=== PATIENT | female | born 1965 | race Caucasian/White ===

== ENCOUNTER → 2019-03-05 | Day surgery (SDC) | payer BC ==
[~2019-03-05] MED LIST: AMLODIPINE-BEN1 EACH PO; ASPIR 8181 MG PO; CRESTOR10 MG PO; FENTANYL CITRATE/PF 100MCG/2 ML INJ ONE; FISH OIL 1,0001 EAC2 PO; HYOSCYAMINE SULFATE 0.5 MG/ML INJ ONE; INVOKANA PO; LEVOTHYROXINE100 MC1 IV; LEXAPRO10 MG PO; MIDAZOLAM HCL 2 MG/2 ML VIAL ONE; MULTIVITAMINS1 EAC7 PO; PROPOFOL IV EMULSION 10 MG/ML 50 ML VIAL ONE; SIMETHICONE 40 MG/0.6 ML BTL ONE; SYNTHROID125 MCG PO; TOPIRAMATE25 MG PO; VITAMIN D1000 UNI1 PO; VITAMIN E200 UNI2 PEG
--- OUTSIDE RECORDS SUMMARY | 2019-03-05 06:19 | XMS REPORT | Encounter Summary ---
Author Organization Unknown Address [address] [place] [address] Phone [phone] Care Team Providers Care Air Conditioning Specialist Name Role Phone Teddy Neal MD 3 [phone] Reason for Visit Medical Complaint Instructions 1. Onychomycosis toenail fungus: care instructions CMP, serum or plasma 2. Essential hypertension high blood pressure: care instructions learning about high blood pressure 3. Hyperlipidemia high cholesterol: care instructions 4. Alcohol intake above recommended sensible limits 5. Nicotine dependence stopping smoking: care instructions 6. Body mass index 30+ - obesity body mass index: care instructions Discussion Note Wash your feet often, and wash your hands after touching your feet. Keep your toenails clean and dry. Dry your feet completely after you bathe and before you put on shoes and socks. Keep your toenails trimmed. Change socks often. Wear dry socks that absorb moisture. Do not go barefoot in public places. Use a spray or powder that fights fungus on your feet and in your shoes. Do not pick at the skin around your nails. Do not use nail sinhala or fake nails on your toenails. advised patient to see PCP for elevated Blood Pressure. Any chest pain, shortness of breath,palpitations, or if blood pressure increased go to the emergency room immediately. Take medications regularly for good control of BP and cholesterol Plan of Care Patient Instructions monitor BP and take medications regularly. If any CP or SOB, palpitations go to ER. DIscussed with patient nicotine addiction and excessive alcohol intake. Reminders Provider Appointments None recorded. Lab CMP, Serum or Plasma 06/05/2018 [facility] Referral None recorded. Procedures None recorded. Surgeries None recorded. Imaging None recorded. Medications Name Start Date amlodipine 5 mg-benazepril 20 mg capsule TK 1 C PO QD escitalopram 20 mg tablet TK 1 T PO QD gabapentin 100 mg capsule TK 2 CS PO BID Invokana 300 mg tablet TK 1 T PO QD levothyroxine 150 mcg tablet TK 1 T PO ONCE A DAY phentermine 30 mg capsule TK 1 C PO QD rosuvastatin 10 mg tablet TK 1 T PO QD. GEF CRESTOR topiramate 25 mg sprinkle capsule TK ONE C PO D Medications Administered None recorded. Vitals Height Weight BMI Blood Pressure 5 ft 3 in 196 lbs 34.7 kg/m2 (1) 130/100 mm[Hg] (2) 140/96 mm[Hg] Lab Results None recorded. Allergies Code Code System Name Reaction Severity Status Onset NKDA Problems Name Status Onset Date Source Body Mass Index 30+ - Obesity Active 06/05/2018 Procedures None recorded. Vaccine List Vaccine Type influenza, injectable, quadrivalent 09/09/2017 Tdap 05/12/2013 Social History Smoking Status Former Smoker Past Encounters 06/05/2018 Onychomycosis; Essential Hypertension; Hyperlipidemia; Alcohol Intake above Recommended Sensible Limits; Nicotine Dependence; Body Mass Index 30+ - Obesity Monica Domingo PA-C: [address] [place] [address], Ph. History of Present Illness Vucw-Wbnhuby-Nepdx-Skin Lesion-Bite 1 Reported By: Patient HPI: Location: ; nails bilateral hands (5 digits). Quality: not itchy, not painful; get manicures and pedicures. Severity: worsening. Duration: ; unsure. Onset/Timing: gradual onset. Context: no new detergents or skin products, no one else with similar rash, no sting or bite. Aggravating factors: nothing makes it worse. Associated Symptoms: no fever/chills, no muscle aches, no headache, no cold symptoms, no nausea, no vomiting, no diarrhea, no urinary symptoms Review of Systems Basic Reported By: Patient Constitutional: Constitutional: no fever Eyes: Eyes: no eye complaints Zvhh-Gblo-Fykrv-Throat: Ears: no ear complaints. Nose: no nose/sinus problems. Mouth/Throat: no sore throat, no bleeding gums, no mouth complaints, no teeth problems Cardiovascular: Cardiovascular: no chest pain, no shortness of breath, no known heart murmur Respiratory: Respiratory: no cough, no wheezing, no shortness of breath Gastrointestinal: Gastrointestinal: no abdominal pain, no vomiting / diarrhea Genitourinary: Genitourinary: no urinary complaints, no discharge Musculoskeletal: Musculoskeletal: no muscle aches, no muscle weakness, no arthralgias/joint pain, no back pain Skin: Skin: no abnormal / changing mole, no jaundice, no rashes; nails yellow dark and slightly kerantized Neurologic: Neurologic: no loss of consciousness, no weakness, no numbness, no seizures, no dizziness, no headaches Physical Exam Adult Basic Reported By: Patient Constitutional: General Appearance: healthy-appearing, well-nourished, well-developed, overweight. Level of Distress: NAD. Ambulation: ambulating normally Psychiatric: Mental Status: active and alert. Orientation: to time, to place, to person Lungs: Respiratory effort: no dyspnea, no tachypnea, no use of accessory muscles, no intercostal retractions. Auscultation: breath sounds normal Cardiovascular: Heart Auscultation: RRR, no murmurs Skin: Inspection and palpation: no rash, no lesions, no ulcer, no abnormal nevi, no induration, no nodules, good turgor, no jaundice. Nails: abnormal; yellow darkish colored nails , right hand 2nd and 4th digits; Left hand 2-4 digits keratinzed
--- OUTSIDE RECORDS SUMMARY | 2019-03-05 06:19 | XMS REPORT | Continuity of Care Document ---
Author Author [facility] Address Unknown Phone Unavailable Problems Problem Status Onset Date Classification Date Reported Comments Source Nicotine dependence 06/05/2018 Diagnosis 06/05/2018 [facility] Alcohol intake above recommended sensible limits 06/05/2018 Diagnosis 06/05/2018 [facility] Hyperlipidemia 06/05/2018 Diagnosis 06/05/2018 [facility] Essential hypertension 06/05/2018 Diagnosis 06/05/2018 [facility] Onychomycosis 06/05/2018 Diagnosis 06/05/2018 [facility] Body mass index 30+ - obesity 06/05/2018 Diagnosis 06/05/2018 [facility] Body Mass Index 30+ - Obesity 06/05/2018 Problem 06/05/2018 [facility] Medications Medication Details Route Status Patient Instructions Ordering Provider Order Date Source Amlodipine 5 MG / Benazepril hydrochloride 20 MG Oral Capsule amlodipine 5 mg-benazepril 20 mg capsule TK 1 C PO QD Active [facility] Escitalopram 20 MG Oral Tablet escitalopram 20 mg tablet TK 1 T PO QD Active [facility] gabapentin 100 MG Oral Capsule gabapentin 100 mg capsule TK 2 CS PO BID Active [facility] canagliflozin 300 MG Oral Tablet [Invokana] Invokana 300 mg tablet TK 1 T PO QD Active [facility] Levothyroxine Sodium 0.15 MG Oral Tablet levothyroxine 150 mcg tablet TK 1 T PO ONCE A DAY Active [facility] Phentermine Hydrochloride 30 MG Oral Capsule phentermine 30 mg capsule TK 1 C PO QD Active [facility] Rosuvastatin calcium 10 MG Oral Tablet rosuvastatin 10 mg tablet TK 1 T PO QD. GEF CRESTOR Active [facility] topiramate 25 MG Oral Capsule topiramate 25 mg sprinkle capsule TK ONE C PO D Active [facility] Allergies, Adverse Reactions, Alerts Substance Category Reaction Severity Reaction type Status Date Reported Comments Source Immunizations Immunization Date Given Site Status Last Updated Comments Source influenza, injectable, quadrivalent 09/09/2017 completed [facility] Tdap 05/12/2013 completed [facility] Results Order Name Results Value Reference Range Date Interpretation Comments Source Vital Signs Vital Sign Value Date Comments Source Diastolic (mm Hg) 96 06/05/2018 [facility] Height 63 06/05/2018 [facility] Systolic (mm Hg) 140 06/05/2018 [facility] Weight 196 06/05/2018 [facility] Encounters Location Location Details Encounter Type Encounter Number Reason For Visit Attending Provider ADM Date DC Date Status Source [place] - [facility] - [id number] ДМИТРИЙ AlvarezC: [address] [place] [address], Ph. [id number] Monica Domingo 06/05/2018 [facility] [place] - [facility] - [id number] ДМИТРИЙ AlvarezC: [address] [place] [address], Ph. [id number] Monica Domingo 06/05/2018 [facility] Procedures Procedure Code Date Perfomer Comments Source
--- OUTSIDE RECORDS SUMMARY | 2019-03-05 06:19 | XMS REPORT | Clinical Summary ---
Author Author [facility] Organization [facility] Address Unknown Phone Unavailable Care Team Providers Care Doctor Assistant Name Role Phone Teddy Neal DO PCP Allergies Not on File Medications Not on file Active Problems Not on file Social History Date Tobacco Use Types Packs/Day Years Used Never Assessed Sex Assigned at Date Recorded Not on file Industry Job Start Date Occupation Not on file Not on file Not on file Travel End Travel History Travel Start No recent travel history available. Last Filed Vital Signs Not on file Plan of Treatment Health Maintenance Due Date Last Done Comments CERVICAL CANCER SCREENING 1987 BREAST CANCER SCREENING 2016 COLON CANCER SCREENING 2016 SHINGLES VACCINES (#1) 2016 INFLUENZA VACCINE 06/11/2019 Results Not on fileafter 03/04/2018 Insurance Payer Benefit Subscriber ID Type Phone Address Plan / Group BCBS BCBS xxxxxxxxxxxx PPO CHOICE PPO/DIANE JIANG PPO (Home) [place] [address] Advance Directives Patient has advance care planning documents on file. For more information, christine doll contact: Devon Castro [address] [place], [place] [address] [place] [address]
--- OUTSIDE RECORDS SUMMARY | 2019-03-05 06:20 | XMS REPORT | Encounter Summary ---
Author Organization Unknown Address [address] [place] [address] Phone [phone] Care Team Providers Care Insole Department Worker Name Role Phone Teddy Neal MD 3 [phone] Reason for Visit Medical Complaint Instructions 1. Onychomycosis toenail fungus: care instructions CMP, serum or plasma 2. Essential hypertension high blood pressure: care instructions learning about high blood pressure 3. Body mass index 30+ - obesity body mass index: care instructions 4. Hyperlipidemia high cholesterol: care instructions Discussion Note Wash your feet [...] around your nails. Do not use nail citizen of [place] or fake nails on your toenails. advised patient to see PCP for elevated Blood Pressure. Any chest pain, shortness of breath,palpitations, or if blood pressure increased go to the emergency room immediately. Take medications regularly for good control of BP and cholesterol Plan of Care Patient Instructions Wash your feet often, and wash your [...] around your nails. Do not use nail citizen [place] or fake nails on your toenails. Reminders Provider Appointments None recorded. Lab CMP, [...] Smoker Past Encounters 06/05/2018 Onychomycosis; Essential Hypertension; Body Mass Index 30+ - Obesity; Hyperlipidemia Monica Domingo PA-C: [address] [place] [address], Ph. History of Present Illness Uxac-Ribqpdm-Zxlvk-Skin Lesion-Bite 1 Reported By: Patient HPI: Location: [...] no fever Eyes: Eyes: no eye complaints Zinm-Lliy-Ohnku-Throat: Ears: no ear complaints. Nose: no nose/sinus [...]
--- OUTSIDE RECORDS SUMMARY | 2019-03-05 06:20 | XMS REPORT ---
Author Author [facility] Address Unknown Phone Unavailable Care Team Providers Care Dry Cleaning Teacher Name Role Phone AYANA KEMP Unavailable Unavailable Problems This patient has no known problems. Allergies, Adverse Reactions, Alerts This patient has no known allergies or adverse reactions. Medications This patient has no known medications. Results Test Description Test Time Test Comments Text Results Atomic Results Result Comments CT ABDOMEN/PELVIS W [place] [address] Patient Name: FLACO VELA MR #: [id number] : 1965 Age/Sex: 51/F Req #: [id number] Adm Physician: Ordered by: AYANA KEMP MD Report #: [id number] Location: CT Room/Bed: Procedure: [id number] CT/CT ABDOMEN/PELVIS W Exam Date: 09/26/17 Exam Time: 1400 REPORT STATUS: Signed PROCEDURE: CT ABDOMEN AND PELVIS WITH CONTRAST TECHNIQUE: The abdomen and pelvis were scanned utilizing a multidetector helical scanner from the diaphragm to the lesser trochanter after the IV administration of 100 cc of Isovue 370 and the oral administration of water. Coronal and sagittal multiplanar reformations were obtained. COMPARISON: None. INDICATIONS: VENTRAL HERNIA FINDINGS: LOWER THORAX: Lung bases are clear. HEPATOBILIARY: No focal hepatic lesions. No biliary ductal dilatation. 1.0 cm peripherally calcified stone in the gallbladder neck. SPLEEN: No splenomegaly. PANCREAS: No focal masses or ductal dilatation. ADRENALS: No adrenal nodules. KIDNEYS/URETERS: No hydronephrosis, stones, or solid mass lesions. PELVIC ORGANS/BLADDER: Bladder is unremarkable. No wall th ickening or focal lesions. 2.2 x 2.4 x 1.9 cm hypodense, simple fluid density lesion in the lower uterine segment/cervix, which likely represents a large nabothian cyst. 4.3 x 2.8 cm simple fluid density lesion in the right ovary. Multiple pelvic phleboliths. PERITONEUM / RETROPERITONEUM: No free air or fluid. LYMPH NODES: No lymphadenopathy. VESSELS: Unremarkable. GI TRACT: No bowel dilation or evidence of obstruction. No pericolonic inflammatory changes. Stomach is unremarkable. BONES AND SOFT TISSUES: No acute bony abnormalities. Mild degenerative disc changes in the lumbosacral spine. Small fat-containing umbilical hernia (sagittal image 67 and series 2, image 61). No other hernias are identified. IMPRESSION: 1. small, fat-containing umbilical hernia. No other hernias are identified. 2. 2.2 cm fluid density lesion in the lower uterine segment/cervix likely represents a large nabothian cyst. A 4.3 cm simple fluid density lesion in the right ovary is likely a follicular cyst. These can be further assessed with transvaginal ultrasound if clinically indicated. 3. Cholelithiasis, without CT evidence of cholecystitis. Dameon James M.D. Dictated by: Dameon James M.D. on 09/26/2017 at 15:07 Electronically approved by: Dameon James M.D. on 09/26/2017 at 15:07 Dictated By: DAMEON JAMES MD [id number] Transcribed By: EZ on 09/26/17 [id number] COPY TO: AYANA KEMP MD
--- NOTE | 2019-03-05 07:20 | NUR ---
SPIRITUAL CARE - Pre-Surgery Assessment: Pt in bed. Pt's at bedside. Pt reported supportive attention from family and friends. Intervention: I provided pastoral presence, hospitality, sympathetic listening, and prayer. I acquainted pt with availability of continuous washer operator while hospitalized. Outcome: Pt expressed appreciation for visit. No need for follow up indicated at this time. JOHN PAUL Braunlain Spiritual Care Department O: [phone] Pager: [phone] ([phone] number calling from)
[2019-03-05 09:25] VITALS: BP 118/80
[2019-03-05 09:56] LABS: WBC,FECAL (FECAL LACTOFERRIN) NEGATIVE (NEGATIVE)
--- NOTE | 2019-03-05 15:07 | Operative Report ---
DATE OF PROCEDURE: 03/05/2019 SURGEON: Mihir Mas MD PROCEDURE: Esophagogastroduodenoscopy with biopsies and colonoscopy with polypectomy and biopsies. INDICATIONS FOR EGD: History of heartburn and indigestion. INDICATIONS FOR COLONOSCOPY: Colorectal cancer screening, history of loose stools. MEDICATIONS: The patient was done under MAC, please see anesthesiologist's note. PROCEDURE IN DETAIL: With the patient in left lateral decubitus position, a flexible fiberoptic Olympus gastroscope was introduced into the esophagus under direct visualization without any difficulty. There was some patchy erythema noted in distal esophagus. A minute tongue of velvety red mucosa was noted to extend proximally from the GE junction that was biopsied to rule out Cortez's. The scope was then advanced with ease into the stomach traversing a small sliding hiatal hernia. Mucosa overlying the antrum and the body revealed some patchy intense erythema, low-grade to moderate edema and biopsies were obtained and sent to stain for H pylori. The pylorus was of normal contour and shape, it was intubated with ease and the scope was advanced all the way to the second portion of the duodenum. Biopsies were obtained from the proximal and second portion and the duodenal bulb to rule out sprue. The scope was then withdrawn back into the stomach and retroflexed and the mucosa overlying the fundus and the cardia appeared to be within normal limits. The scope was then straightened out, it was subsequently withdrawn. The patient tolerated procedure well. IMPRESSION: 1. Distal esophagitis, mild. 2. Rule out Cortez's esophagus. 3. Small sliding hiatal hernia. 4. Gastritis, biopsied, biopsies sent to stain for H pylori. 5. Rule out sprue. PLAN: Follow up histology. Initiate Protonix 40 mg one p.o. q.a.m. a.c. PROCEDURE IN DETAIL: The patient was then turned around. After adequate lubrication of the anal canal, a flexible fiberoptic Olympus colonoscope was inserted into the rectum with ease and advanced all the way to the cecum. Mucosa overlying the cecum appeared to be within normal limits. The ileocecal valve was intubated and the scope was advanced into the terminal ileum. Biopsies were obtained. The scope was then withdrawn back into the colon. It was then withdrawn slowly. One polyp was snared and polypectomy site was hemoclipped in the distal ascending colon. The transverse grossly appeared to be within normal limits. There was mild patchy inflammatory changes noted in the left colon and some scattered diverticular disease and multiple random biopsies were obtained. One polyp was snared from the rectum and also mild inflammatory changes were noted in the rectum and biopsies were obtained. The scope was then retroflexed into the distal rectum and small internal hemorrhoids were noted, none of which was actively bleeding. The scope was then straightened out, it was subsequently withdrawn after securing an adequate stool specimen that was sent for the appropriate stool studies. The patient tolerated procedure well. IMPRESSION: 1. Ascending colon polyp snared and site hemoclipped. 2. Diverticulosis. 3. Mild patchy left-sided colitis. 4. Rectal polyp, snared. 5. Proctitis, mild. 6. Internal hemorrhoids, none actively bleeding. PLAN: Follow up histology. Follow up stool studies. Initiate Bentyl 10 mg one p.o. t.i.d. VSL#3 one p.o. daily. The patient will benefit from a followup colonoscopy in 3 years. MD RAMSES Valdez/ALBERT /[id number] cc: Teddy Neal DO
[2019-03-05 15:12] LABS: C DIFFICILE TOXIN A&B AMP PROB NEGATIVE (NEGATIVE)
== END | disposition home or self-care (01) ==
LOC: OR 06:17
PROVIDERS: ATTEND Internal Medicine Gastroenterology
DX: Z12.11 Encounter for screening for malignant neoplasm of colon (principal); D12.2 Benign neoplasm of ascending colon; D12.8 Benign neoplasm of rectum; K29.70 Gastritis, unspecified, without bleeding; K51.50 Left sided colitis without complications; K29.80 Duodenitis without bleeding; K57.30 Diverticulosis of large intestine without perforation or abscess without bleeding; K62.89 Other specified diseases of anus and rectum; K20.9 Esophagitis, unspecified; K64.8 Other hemorrhoids; K44.9 Diaphragmatic hernia without obstruction or gangrene; G47.33 Obstructive sleep apnea (adult) (pediatric); E78.00 Pure hypercholesterolemia, unspecified; E03.9 Hypothyroidism, unspecified; E11.9 Type 2 diabetes mellitus without complications; I10 Essential (primary) hypertension; F17.290 Nicotine dependence, other tobacco product, uncomplicated; Z88.1 Allergy status to other antibiotic agents; Z01.810 Encounter for preprocedural cardiovascular examination; Z79.82 Long term (current) use of aspirin; Z79.84 Long term (current) use of oral hypoglycemic drugs; Z68.41 Body mass index [BMI] 40.0-44.9, adult; Z80.0 Family history of malignant neoplasm of digestive organs
CPT/HCPCS: 36415; 43239; 45380; 45385; 81025; 82948; 83630; 83993; 87045; 87177; 87328; 87493; 93005; J1980; J2250; J2704; 45378; 45384